=== PATIENT | male | born 1995 | race Hispanic/Latino ===

== ENCOUNTER 2021-03-16 06:28 | Day surgery (SDC) | payer OTHER ==
[2021-03-11 11:41] LABS: BASOPHILS % (AUTO) 0.3 % (0.0-5.0); EOSINOPHILS % (AUTO) 1.3 % (0.0-8.0); HEMATOCRIT 45.9 % (42-54); LYMPHOCYTES % (AUTO) 28.8 % (21.0-51.0); MEAN CORPUSCULAR HEMOGLOBIN 29.2 pg (27.0-33.0); MEAN CORPUSCULAR HGB CONC 33.8 g/dL (32.0-36.0); MEAN CORPUSCULAR VOLUME 86.4 fL (79-99); MONOCYTES % (AUTO) 10.3 % (3.0-13.0); NEUTROPHILS % (AUTO) 58.7 % (40.0-77.0); PLATELET COUNT (AUTO) 270 K/uL (130-400); RED BLOOD CELL COUNT(AUTO) 5.31 MIL/uL (4.50-6.20); RED CELL DISTRIBUTION WIDTH 12.2 % (11.0-15.5); WHITE BLOOD COUNT (AUTO) 6.4 K/uL (4.8-10.8)
[2021-03-11 11:48] LABS: POTASSIUM 3.9 mmol/L (3.5-5.1)
[2021-03-16] VITALS (14 sets, daily range): BP systolic 112–139; BP diastolic 64–92
[~2021-03-16] VITALS: Ht 172.7 cm; Wt 108.7 kg
[2021-03-16] MEDS ORDERED: CEFAZOLIN SODIUM 1 GM VIAL ONE (07:16)
[2021-03-16] MEDS ORDERED: LACTATED RINGERS 1000ML 1,000 ML IV ONE (07:19)
[2021-03-16] MEDS: CEFAZOLIN SODIUM 1 GM VIAL ONE ×2 (07:22→08:45)
[2021-03-16] MEDS ORDERED: LIDOCAINE PF 100MG/5ML (2%) SYRINGE 5ML ONE (07:50)
[2021-03-16] MEDS ORDERED: MIDAZOLAM HCL 1 MG/ML 2ML VIAL ONE (07:50)
[2021-03-16] MEDS ORDERED: ROCURONIUM 10MG/1ML SYR 10 MG/ML ML ONE (07:50)
[2021-03-16] MEDS ORDERED: FENTANYL CITRATE PF 50 MCG/1 ML 2ML VIAL ONE (07:50)
[2021-03-16] MEDS ORDERED: PROPOFOL 10 MG/ML 20ML VIAL IV ONE (07:50)
[2021-03-16] MEDS ORDERED: ROPIVACAINE 0.5% 5MG/ML 30ML IJ ONE (07:55)
[2021-03-16] MEDS ORDERED: DEXAMETHASONE SOD PHOSPHATE 10MG/ML 1ML VIAL ONE (09:03)
[2021-03-16] MEDS ORDERED: GLYCOPYRROLATE 1 MG/5 ML SYRINGE ONE (10:23)
[2021-03-16] MEDS ORDERED: ONDANSETRON HCL 4 MG/2 ML VIAL ONE ×2 (10:23→10:29)
[2021-03-16] MEDS ORDERED: NEOSTIGMINE 5MG/5ML SYR IV ONE (10:24)
[2021-03-16] MEDS ORDERED: KETOROLAC 30MG VIAL (30MG/ML) ONE (10:32)
[2021-03-16] MEDS ORDERED: HYDR-4060 PO (10:49)
[2021-03-16] MEDS ORDERED: IBUP-2070 PO (10:49)
[2021-03-16] MEDS ORDERED: CEPH500B PO (10:49)
== END 2021-03-16 12:35 | disposition home or self-care (01) ==
LOC: DAH 06:28
PROVIDERS: ATTEND Orthopaedic Surgery
DX: S83.512A Sprain of anterior cruciate ligament of left knee, initial encounter (principal); Z20.822 Contact with and (suspected) exposure to COVID-19; E66.9 Obesity, unspecified; Z72.89 Other problems related to lifestyle; Z82.49 Family history of ischemic heart disease and other diseases of the circulatory system; Y93.67 Activity, basketball; X58.XXXA Exposure to other specified factors, initial encounter; Y92.89 Other specified places as the place of occurrence of the external cause
CPT/HCPCS: 29888; 36415; 64415; 76942; 80048; 85025; 87635; A4215; A4221; A4222; A4223; A4649 ×5; A4663; A4930; A5120; A6207; A6223; C1713; C1762; C1776; C9803; J0690 ×2; J1100; J1885; J2001; J2250; J2405 ×2; J2704; J2710; J2795; J3010; J3490; J7120 ×2